=== PATIENT | male | born 1980 | race Caucasian/White ===

== ENCOUNTER 2020-12-31 10:21 | Inpatient (IN) ==
[2020-12-31] MEDS ORDERED: 0.9 % Sodium Chloride 500 ML IVC ONE (10:29)
[2020-12-31] MEDS ORDERED: Ondansetron 4 MG/2 ML VIAL IVP ONE (10:30)
[2020-12-31 11:05] LABS: Basophils % 0.2 %; Eosinophils % 0.2 %; Hematocrit 47.9 % (37.5-50.1); Hemoglobin 16.5 g/dL (12.9-16.9); Immature Granulocytes % 0.4 % (0-4); Mean Corpuscular HGB Conc 34.4 g/dL (31.6-35.5); Mean Corpuscular Hemoglobin 27.9 pg (28.0-33.3); Mean Corpuscular Volume 80.9 fL (83.0-100.0); Mean Platelet Volume 9.8 fL (9.4-12.4); Monocytes # 0.4 K/mcL (0.0-1.3); Monocytes % 8.2 %; Neutrophils # 3.7 K/mcL (1.6-8.9); Platelet Count 179 K/mcL (140-400); Red Blood Count 5.92 M/mcL (4.19-5.50); Red Cell Distribution Width 12.3 % (11.5-14.5); White Blood Count 5.2 K/mcL (4.3-11.1)
[2020-12-31 11:21] LABS: BUN/Creatinine Ratio 10 (6-26); Blood Urea Nitrogen 10 mg/dL (6-20); Calcium 9.2 mg/dL (8.6-10.3); Carbon Dioxide 25 mEq/L (23-29); Chloride 94 mEq/L (98-107); Glucose 339 mg/dL (70-105); Osmolality,Calculated 286 (280-300); Potassium 3.4 mEq/L (3.5-5.1); Sodium 132 mEq/L (136-145); eGFR For African Americans > 60 (> 60); eGFR For Non-African Americans > 60 (> 60)
[2020-12-31] MEDS: 0.9 % Sodium Chloride 1,000 ML IVC SCH ×3 (11:28→16:46)
[2020-12-31] MEDS ORDERED: D5% in Water 1,000 ML IVC PRN (11:29)
[2020-12-31] MEDS ORDERED: Naloxone 0.4 MG/ML INJ IVP PRN (11:29)
[2020-12-31] MEDS ORDERED: *HR* Dextrose 50 % in Water (Vial) 50 ML VIAL IVP PRN (11:29)
[2020-12-31] MEDS ORDERED: Dextrose Gel 15 GM/37.5 ML TUBE PO PRN ×2 (11:29)
[2020-12-31] MEDS ORDERED: Ondansetron 4 MG/2 ML VIAL IVP PRN (11:47)
[2020-12-31] MEDS: Dexamethasone 4 MG/ML VIAL IVP SCH (13:22)
[2020-12-31] MEDS: Insulin LISPRO 300 UNITS/3 ML VIAL SUBQ SCH ×2 (16:36→20:51)
[2020-12-31] MEDS: Acetaminophen 325 MG TABLET PO PRN (17:25)
[2021-01-01] MEDS ORDERED: Insulin LISPRO 300 UNITS/3 ML VIAL SUBQ ONE (01:15)
[2021-01-01] MEDS: 0.9 % Sodium Chloride 1,000 ML IVC SCH ×4 (01:16→16:45)
[2021-01-01] MEDS: *HR* Enoxaparin 40 MG/0.4 ML SYRINGE SQ SCH (05:29)
[2021-01-01 07:31] LABS: Hematocrit 41.7 % (37.5-50.1); Hemoglobin 14.7 g/dL (12.9-16.9); Mean Corpuscular HGB Conc 35.3 g/dL (31.6-35.5); Mean Corpuscular Hemoglobin 28.3 pg (28.0-33.3); Mean Corpuscular Volume 80.3 fL (83.0-100.0); Mean Platelet Volume 9.6 fL (9.4-12.4); Platelet Count 185 K/mcL (140-400); Red Blood Count 5.19 M/mcL (4.19-5.50); Red Cell Distribution Width 12.1 % (11.5-14.5); White Blood Count 6.3 K/mcL (4.3-11.1)
[2021-01-01 07:40] LABS: BUN/Creatinine Ratio 15 (6-26); Blood Urea Nitrogen 13 mg/dL (6-20); Calcium 8.4 mg/dL (8.6-10.3); Carbon Dioxide 25 mEq/L (23-29); Chloride 96 mEq/L (98-107); Chol/HDL Ratio 5.2 (0-4.9); Cholesterol 134 mg/dL (< 200); Glucose 252 mg/dL (70-105); HDL Cholesterol 26 mg/dL (40-59); LDL Cholesterol,Calculated 85 mg/dL (< 100); Magnesium 1.6 mg/dL (1.6-2.6); Osmolality,Calculated 281 (280-300); Potassium 3.3 mEq/L (3.5-5.1); Sodium 131 mEq/L (136-145); Triglycerides 113 mg/dL (< 150); eGFR For African Americans > 60 (> 60); eGFR For Non-African Americans > 60 (> 60)
[2021-01-01] MEDS: Dexamethasone 4 MG/ML VIAL IVP SCH (08:30)
[2021-01-01] MEDS: *HR* Glimepiride 2 MG TABLET PO SCH ×2 (08:40→16:44)
[2021-01-01] MEDS: Acetaminophen 325 MG TABLET PO PRN ×2 (08:40→16:46)
[2021-01-01] MEDS: lisinopriL 20 MG TABLET PO SCH (08:41)
[2021-01-01] MEDS ORDERED: Ondansetron 4 MG/2 ML VIAL IVP PRN (08:41)
[2021-01-01] MEDS: Insulin LISPRO 300 UNITS/3 ML VIAL SUBQ SCH ×4 (08:42→20:45)
[2021-01-01] MEDS: levoFLOXacin 750 MG/150 ML 750 MG/150 ML BAG IVPB SCH (08:50)
[2021-01-01] MEDS: Magnesium Oxide 400 MG TABLET PO SCH ×2 (09:14→20:45)
[2021-01-01] MEDS: Benzonatate 100 MG CAPSULE PO PRN ×2 (10:01→18:06)
[2021-01-01] MEDS: clonazePAM 0.5 MG TABLET PO PRN (10:01)
[2021-01-01] MEDS: *HR* OxyCODONE/APAP 10/325 TABLET PO PRN ×2 (10:01→18:06)
[2021-01-01 13:11] LABS: Estimated Average Glucose 303 mg/dl; Hemoglobin A1C 12.2 %
[2021-01-01 13:14] LABS: C-Reactive Protein 51 mg/L (Less than 10)
[2021-01-01 13:24] LABS: Ferritin 917 ng/mL (20-250)
[2021-01-01] MEDS ORDERED: Insulin DETEMIR 100 UNIT/ML X5UNITS SUBQ SCH (21:00)
[2021-01-02] MEDS: Acetaminophen 325 MG TABLET PO PRN ×3 (00:29→16:53)
[2021-01-02] MEDS: clonazePAM 0.5 MG TABLET PO PRN ×2 (01:53→22:32)
[2021-01-02] MEDS ORDERED: Furosemide 20 MG/2 ML VIAL IVP ONE (02:11)
[2021-01-02] MEDS: *HR* Enoxaparin 40 MG/0.4 ML SYRINGE SQ SCH (05:22)
[2021-01-02 07:12] LABS: Basophils % 0.1 %; Hematocrit 39.4 % (37.5-50.1); Hemoglobin 13.8 g/dL (12.9-16.9); Immature Granulocytes % 0.4 % (0-4); Lymphocytes # 1.6 K/mcL (0.6-4.6); Lymphocytes % 24.2 %; Mean Corpuscular Hemoglobin 27.9 pg (28.0-33.3); Mean Corpuscular Volume 79.6 fL (83.0-100.0); Mean Platelet Volume 9.7 fL (9.4-12.4); Monocytes # 0.4 K/mcL (0.0-1.3); Monocytes % 5.8 %; Neutrophils # 4.7 K/mcL (1.6-8.9); Platelet Count 191 K/mcL (140-400); Red Blood Count 4.95 M/mcL (4.19-5.50); Red Cell Distribution Width 12.2 % (11.5-14.5); Segmented Neutrophils % 69.5 %; White Blood Count 6.7 K/mcL (4.3-11.1)
[2021-01-02] MEDS: Insulin LISPRO 300 UNITS/3 ML VIAL SUBQ SCH ×4 (07:43→20:22)
[2021-01-02 07:53] LABS: BUN/Creatinine Ratio 16 (6-26); Blood Urea Nitrogen 14 mg/dL (6-20); Calcium 8.1 mg/dL (8.6-10.3); Carbon Dioxide 25 mEq/L (23-29); Chloride 94 mEq/L (98-107); Glucose 205 mg/dL (70-105); Osmolality,Calculated 272 (280-300); Sodium 128 mEq/L (136-145); eGFR For African Americans > 60 (> 60); eGFR For Non-African Americans > 60 (> 60)
[2021-01-02] MEDS: levoFLOXacin 750 MG/150 ML 750 MG/150 ML BAG IVPB SCH (10:21)
[2021-01-02] MEDS: *HR* Glimepiride 2 MG TABLET PO SCH ×2 (10:22→16:53)
[2021-01-02] MEDS: lisinopriL 20 MG TABLET PO SCH (10:22)
[2021-01-02] MEDS: Magnesium Oxide 400 MG TABLET PO SCH ×2 (10:22→20:21)
[2021-01-02] MEDS: Dexamethasone 4 MG/ML VIAL IVP SCH (10:22)
[2021-01-02] MEDS: Benzonatate 100 MG CAPSULE PO PRN ×2 (10:37→16:52)
[2021-01-02] MEDS: Potassium Chloride Elixir 20 MEQ/15 ML UDC PO ONE (12:27)
[2021-01-02] MEDS ORDERED: Dexamethasone 4 MG/ML VIAL IVP ONE (13:48)
[2021-01-02] MEDS: Furosemide 20 MG/2 ML VIAL IVP SCH (20:22)
[2021-01-02] MEDS ORDERED: Insulin DETEMIR 100 UNIT/ML X5UNITS SUBQ SCH (21:00)
[2021-01-02] MEDS: *HR* OxyCODONE/APAP 10/325 TABLET PO PRN (22:32)
[2021-01-03] MEDS: *HR* Enoxaparin 40 MG/0.4 ML SYRINGE SQ SCH (05:39)
[2021-01-03] MEDS: Benzonatate 100 MG CAPSULE PO PRN ×2 (05:44→12:11)
[2021-01-03] MEDS: Acetaminophen 325 MG TABLET PO PRN ×2 (07:04→16:39)
[2021-01-03 08:11] LABS: Basophils % 0.1 %; Hematocrit 43.5 % (37.5-50.1); Hemoglobin 15.2 g/dL (12.9-16.9); Immature Granulocytes % 0.3 % (0-4); Lymphocytes # 0.9 K/mcL (0.6-4.6); Lymphocytes % 9.7 %; Mean Corpuscular HGB Conc 34.9 g/dL (31.6-35.5); Mean Corpuscular Hemoglobin 27.9 pg (28.0-33.3); Mean Platelet Volume 9.6 fL (9.4-12.4); Monocytes # 0.3 K/mcL (0.0-1.3); Monocytes % 3.7 %; Platelet Count 228 K/mcL (140-400); Red Blood Count 5.44 M/mcL (4.19-5.50); Red Cell Distribution Width 12.3 % (11.5-14.5); Segmented Neutrophils % 86.2 %; White Blood Count 9.3 K/mcL (4.3-11.1)
[2021-01-03 08:33] LABS: INR 1.2; Magnesium 1.7 mg/dL (1.6-2.6); Prothrombin Time 13.9 Seconds (9.4-12.1)
[2021-01-03 08:34] LABS: BUN/Creatinine Ratio 21 (6-26); Blood Urea Nitrogen 18 mg/dL (6-20); Calcium 8.8 mg/dL (8.6-10.3); Carbon Dioxide 26 mEq/L (23-29); Chloride 93 mEq/L (98-107); Creatine Kinase 164 Units/L (30-223); Glucose 204 mg/dL (70-105); Osmolality,Calculated 282 (280-300); Potassium 3.3 mEq/L (3.5-5.1); Sodium 132 mEq/L (136-145); eGFR For African Americans > 60 (> 60); eGFR For Non-African Americans > 60 (> 60)
[2021-01-03 08:35] LABS: Alanine Aminotransferase 44 Units/L (7-52); Albumin 3.7 g/dL (3.5-5.7); Albumin/Globulin Ratio 1.2 (1.1-2.2); Alkaline Phosphatase 48 Units/L (34-104); Aspartate Amino Transferase 26 Units/L (13-39); BUN/Creatinine Ratio 20 (6-26); Bilirubin,Total 0.5 mg/dL (0.3-1.0); Blood Urea Nitrogen 18 mg/dL (6-20); Calcium 8.7 mg/dL (8.6-10.3); Carbon Dioxide 26 mEq/L (23-29); Chloride 93 mEq/L (98-107); Glucose 204 mg/dL (70-105); Osmolality,Calculated 282 (280-300); Potassium 3.3 mEq/L (3.5-5.1); Sodium 132 mEq/L (136-145); Total Protein 6.7 g/dL (6.4-8.9); eGFR For African Americans > 60 (> 60); eGFR For Non-African Americans > 60 (> 60)
[2021-01-03] MEDS: Insulin LISPRO 300 UNITS/3 ML VIAL SUBQ SCH ×4 (09:26→22:27)
[2021-01-03] MEDS: Magnesium Oxide 400 MG TABLET PO SCH ×2 (09:27→22:28)
[2021-01-03] MEDS: *HR* OxyCODONE/APAP 10/325 TABLET PO PRN (09:28)
[2021-01-03] MEDS: lisinopriL 20 MG TABLET PO SCH (09:28)
[2021-01-03] MEDS: clonazePAM 0.5 MG TABLET PO PRN (09:28)
[2021-01-03] MEDS: *HR* Glimepiride 2 MG TABLET PO SCH ×2 (09:28→16:38)
[2021-01-03] MEDS: Dexamethasone Sodium Phos/PF 10 MG/ML VIAL IVP SCH (09:29)
[2021-01-03] MEDS: levoFLOXacin 750 MG/150 ML 750 MG/150 ML BAG IVPB SCH (09:29)
[2021-01-03] MEDS: Furosemide 20 MG/2 ML VIAL IVP SCH ×2 (09:29→22:28)
[2021-01-03] MEDS ORDERED: Potassium Chloride Elixir 20 MEQ/15 ML UDC PO ONE ×2 (10:25→13:16)
[2021-01-03 13:43] LABS: Lactate Dehydrogenase 314 Units/L (140-271)
[2021-01-03] MEDS ORDERED: Insulin DETEMIR 100 UNIT/ML X5UNITS SUBQ SCH (21:00)
[2021-01-04] MEDS: Acetaminophen 325 MG TABLET PO PRN (02:54)
[2021-01-04] MEDS: Benzonatate 100 MG CAPSULE PO PRN ×2 (02:54→16:29)
[2021-01-04] MEDS: *HR* Enoxaparin 40 MG/0.4 ML SYRINGE SQ SCH (05:54)
[2021-01-04 08:06] LABS: Basophils % 0.2 %; Hematocrit 40.6 % (37.5-50.1); Hemoglobin 14.1 g/dL (12.9-16.9); Immature Granulocytes % 0.8 % (0-4); Lymphocytes # 1.6 K/mcL (0.6-4.6); Lymphocytes % 13.2 %; Mean Corpuscular HGB Conc 34.7 g/dL (31.6-35.5); Mean Corpuscular Hemoglobin 27.6 pg (28.0-33.3); Mean Corpuscular Volume 79.5 fL (83.0-100.0); Mean Platelet Volume 9.5 fL (9.4-12.4); Monocytes # 0.6 K/mcL (0.0-1.3); Monocytes % 4.7 %; Neutrophils # 9.9 K/mcL (1.6-8.9); Platelet Count 262 K/mcL (140-400); Red Blood Count 5.11 M/mcL (4.19-5.50); Red Cell Distribution Width 12.1 % (11.5-14.5); Segmented Neutrophils % 81.1 %; White Blood Count 12.2 K/mcL (4.3-11.1)
[2021-01-04] MEDS: Insulin LISPRO 300 UNITS/3 ML VIAL SUBQ SCH ×3 (08:51→16:29)
[2021-01-04] MEDS: lisinopriL 20 MG TABLET PO SCH (08:53)
[2021-01-04] MEDS: *HR* Glimepiride 2 MG TABLET PO SCH ×2 (08:53→16:29)
[2021-01-04] MEDS: clonazePAM 0.5 MG TABLET PO PRN (08:53)
[2021-01-04] MEDS: Magnesium Oxide 400 MG TABLET PO SCH (08:53)
[2021-01-04] MEDS: Dexamethasone Sodium Phos/PF 10 MG/ML VIAL IVP SCH (08:54)
[2021-01-04] MEDS: levoFLOXacin 750 MG/150 ML 750 MG/150 ML BAG IVPB SCH (08:54)
[2021-01-04] MEDS: Furosemide 20 MG/2 ML VIAL IVP SCH (08:54)
[2021-01-04] MEDS: *HR* OxyCODONE/APAP 10/325 TABLET PO PRN (08:57)
[2021-01-04 10:25] LABS: BUN/Creatinine Ratio 19 (6-26); Blood Urea Nitrogen 17 mg/dL (6-20); Calcium 8.3 mg/dL (8.6-10.3); Carbon Dioxide 26 mEq/L (23-29); Chloride 93 mEq/L (98-107); Glucose 221 mg/dL (70-105); Osmolality,Calculated 276 (280-300); Potassium 3.2 mEq/L (3.5-5.1); Sodium 129 mEq/L (136-145); eGFR For African Americans > 60 (> 60); eGFR For Non-African Americans > 60 (> 60)
[2021-01-04 10:35] VITALS: BP 111/70
[2021-01-04] MEDS ORDERED: Potassium Chloride Elixir 20 MEQ/15 ML UDC PO ONE (14:14)
[2021-01-04] MEDS: Potassium Chloride Elixir 20 MEQ/15 ML UDC PO ONE (16:29)
[2021-01-04] MEDS ORDERED: Insulin DETEMIR 100 UNIT/ML X5UNITS SUBQ SCH (21:00)
== END 2021-01-04 15:15 | disposition home or self-care (01) | DRG 871 ==
LOC: EMEROOPIK 10:21 → INPPIK 10:21
PROVIDERS: ADMIT Family Medicine; ATTEND Family Medicine